=== PATIENT | female | born 1960 | race Caucasian/White ===

== ENCOUNTER → 2019-10-19 11:16 | Outpatient (CLI) | payer OTHER, SELFPAY ==
--- NOTE | ~2019-10-19 | XR_ITS ---
EXAMINATION: XR shoulder LT min 2V DATE: 10/19/2019 11:43 INDICATION: Chronic left shoulder pain. TECHNIQUE: 4 views of left shoulder were obtained. COMPARISON: None. FINDINGS: Bone alignment is normal. No fracture. Glenohumeral joint is normal. There is mild acromioc lavicular joint osteoarthritis. IMPRESSION: 1. Mild left acromioclavicular joint osteoarthritis. Reviewed, dictated and finalized at location B.
== END ==
PROVIDERS: PCP Nurse Practitioner; Visit Provider Nurse Practitioner
DX: M19.012 Primary osteoarthritis, left shoulder (principal); G89.29 Other chronic pain
CPT/HCPCS: 73030

== ENCOUNTER → 2019-12-06 16:47 | Outpatient (CLI) | payer OTHER, SELFPAY ==
--- NOTE | ~2019-12-06 | MR_ITS ---
EXAMINATION: MR shoulder LT wo con DATE: 12/06/2019 17:43 INDICATION: Left shoulder pain TECHNIQUE: Magnetic resonance imaging (MRI) of the left shoulder was performed without intravenous co ntrast. Sequences included axial PD-weighted FS FSE, coronal oblique PD-weighted FS FSE, coronal obli que T2-weighted FS FSE, sagittal PD-weighted FS FSE, and sagittal T1-weighted SE. COMPARISON: Left shoulder radiographs dated 10/19/2019 FINDINGS: Coracoacromial arch: The acromion undersurface is flat in morphology (type I). The coracoacromial ligament is normal. Mild acromioclavicular osteoarthritis. Rotator cuff: Mild supraspinatus tendinopathy with small intrasubstance tear extending for approximately 8 mm AP al jamey the superior facet footplate and involving less than one third of the tendon thickness. The infra spinatus, teres minor and subscapularis tendons are normal. Normal rotator cuff muscle bulk and signa l. Biceps tendon, glenoid labrum and glenohumeral cartilage: Long head of the biceps tendon is normal. Tear of the posterior half of the glenoid labrum extending from the 12:00 to the 6:00 position with a few tiny paravertebral cysts at the margins of the posterior inferior labrum. Mild partial thickness cartilage loss with smooth chondral surface along the apex of the humeral head. There is partial thi ckness cartilage loss at the anteroinferior glenoid with deeper full/near full-thickness chondral def ect at the central glenoid, the latter which could be developmental. Fluid: Physiologic amount of fluid in the glenohumeral joint and biceps tendon sheath. No loose osteochondra l bodies. No abnormal fluid signal in the subacromial/subdeltoid bursa to suggest bursitis. Bones: Normal marrow signal with no edema, fracture or abnormal marrow replacing process. There is thickenin g of the inferior joint capsule at the axillary recess as well as thickened soft tissue density repla cing the normal T1 hyperintense fat signal at the rotator cuff interval, both findings which can be s een with adhesive capsulitis which is a clinical diagnosis. IMPRESSION: 1. Mild glenohumeral osteoarthritis with tear of the posterior half of the glenoid labrum. 2. Mild supraspinatus tendinopathy with small mild intrasubstance tear along the superior facet footp late. 3. Thickened inferior joint capsule and increased soft tissue at the rotator cuff interval, both find ings which can be seen with adhesive capsulitis which is a clinical diagnosis. Reviewed, dictated and finalized at location B. IMPRESSION: 1. Mild glenohumeral osteoarthritis with tear of the posterior half of the mindi oid labrum. 2. Mild supraspinatus tendinopathy with small mild intrasubstance tear along th e superior facet footplate. 3. Thickened inferior joint capsule and increased soft tissue at the rotator cu ff interval, both findings which can be seen with adhesive capsulitis which is a clinical diagnosis.
== END ==
PROVIDERS: PCP Nurse Practitioner; Visit Provider Nurse Practitioner
DX: M25.512 Pain in left shoulder (principal)
CPT/HCPCS: 73221

== ENCOUNTER → 2020-10-17 11:22 | Outpatient (CLI) | payer OTHER, SELFPAY ==
--- NOTE | ~2020-10-17 | MM_ITS ---
EXAMINATION: MM screening dee BI w oliva HISTORY: Screening mammogram TECHNIQUE: Craniocaudal and mediolateral oblique 3-D tomosynthesis images were obtained and synthetic 2-D images were generated. CAD analysis was submitted and interpreted. COMPARISON: 01/06/2010 BREAST PARENCHYMAL COMPOSITION: There are scattered areas of fibroglandular density. FINDINGS: A small area of fat necrosis is present in the inner left breast, consistent with history o f excisional biopsy. There is no evidence of suspicious mass, calcification, or architectural distort ion to suggest malignancy in either breast. There has been no suspicious interval change. IMPRESSION: 1. No mammographic evidence of malignancy. 2. Recommend routine screening mammography in one year. BI-RADS Category 2: Benign finding(s). Reviewed, dictated and finalized at location A.
== END ==
PROVIDERS: PCP Nurse Practitioner; Visit Provider Nurse Practitioner
DX: Z12.31 Encounter for screening mammogram for malignant neoplasm of breast (principal)
CPT/HCPCS: 77063; 77067

== ENCOUNTER → 2022-01-08 10:42 | Outpatient (CLI) | payer BC, SELFPAY ==
--- NOTE | ~2022-01-08 | MM_ITS ---
EXAMINATION: MM screening dee BI w oliva HISTORY: Screening TECHNIQUE: Craniocaudal and mediolateral oblique 3-D tomosynthesis images were obtained and synthetic 2-D images were generated. CAD analysis was submitted and interpreted. COMPARISON: Comparison to multiple prior studies sequentially, with oldest reviewed study dated 12/23. BREAST PARENCHYMAL COMPOSITION: The breasts are almost entirely fatty. FINDINGS: There is a focal fatty lesion in the lower inner quadrant of the left breast with developin g coarse calcifications.. The calcifications have an indeterminate appearance. The right breast is st able without evidence for malignancy. IMPRESSION: 1. Developing coarse indeterminate calcifications in the lower inner quadrant of the left breast with adjacent loculated fat. 2. Magnification views are recommended. BI-RADS Category 0: Incomplete: Needs additional imaging evaluation. Reviewed, dictated and finalized at location A. DEALER IMPRESSION: 1. Developing coarse indeterminate calcifications in the lower inner quadrant o f the left breast with adjacent loculated fat. 2. Magnification views are recommended. BI-RADS Category 0: Incomplete: Needs additional imaging evaluation.
== END ==
PROVIDERS: PCP Nurse Practitioner; Visit Provider Nurse Practitioner
DX: Z12.31 Encounter for screening mammogram for malignant neoplasm of breast (principal); R92.8 Other abnormal and inconclusive findings on diagnostic imaging of breast
CPT/HCPCS: 77063; 77067

== ENCOUNTER → 2022-01-29 09:06 | Outpatient (CLI) | payer BC, SELFPAY ==
--- NOTE | ~2022-01-29 | MM_ITS ---
EXAMINATION: MM diagnostic mammo unilat LT HISTORY: Left breast calcifications on screening mammogram TECHNIQUE: Magnification views of the left breast were performed. CAD analysis was submitted and inte rpreted. COMPARISON: 01/08/2022, 10/17/2020, 01/06/2010 FINDINGS: There is a stable area of fat necrosis in the middle third of the inner breast likely relat ed to prior excisional biopsy. Dystrophic calcifications at the site demonstrates slight increase. No suspicious interval change is identified. IMPRESSION: 1. Fat necrosis and dystrophic calcification of the left breast at the site of prior excisional biops y. 2. Recommend routine screening mammography in one year. BI-RADS Category 2: Benign finding(s). Reviewed, dictated and finalized at location A. ER DEVELOPER IMPRESSION: 1. Fat necrosis and dystrophic calcification of the left breast at the site of prior excisional biopsy. 2. Recommend routine screening mammography in one year. BI-RADS Category 2: Benign finding(s).
== END ==
PROVIDERS: PCP Nurse Practitioner; Visit Provider Nurse Practitioner
DX: R92.8 Other abnormal and inconclusive findings on diagnostic imaging of breast (principal)
CPT/HCPCS: 77065

== ENCOUNTER 2024-03-31 13:34 | Outpatient (CLI) | payer OTHER, SELFPAY ==
--- NOTE | ~2024-03-31 | MM_ITS ---
EXAMINATION: MM screening dee BI w oliva HISTORY: Screening TECHNIQUE: Craniocaudal and mediolateral oblique 3-D tomosynthesis images were obtained and synthetic 2-D images were generated. CAD analysis was submitted and interpreted. COMPARISON: Comparison to multiple prior studies sequentially, with oldest reviewed study dated 10/17. BREAST PARENCHYMAL COMPOSITION: Not dense: There are scattered areas of fibroglandular density. FINDINGS: There is no evidence of suspicious mass, calcification, or architectural distortion to sugg est malignancy in either breast. There has been no suspicious interval change. IMPRESSION: 1. No mammographic evidence of malignancy. 2. Recommend routine screening mammography in one year. BI-RADS Category 1: Negative Reviewed, dictated and finalized at location B. GED CARE PROVIDER
--- OUTSIDE RECORDS SUMMARY | 2024-03-31 13:40 | XMS_ITS | Clinical Summary ---
Author Organization [facility] [address] Address [address] [place] [address] Phone Care Team Providers Care Reel Cutter Name Role Phone Eula Hicks Primary Care Provider [phone] Allergies Active Allergy Reactions Criticality Noted Date Comments Meperidine Nausea and Vomiting Low 05/11/2016 Medications fluticasone (FLONASE) 50 mcg/spray [place], Suspension 04/20/2016 Active hyoscyamine 0.125 mg Tablet, Sublingual 04/19/2016 Active lisinopril (PRINIVIL) 10 mg tablet 04/19/2016 Active pravastatin (PRAVACHOL) 40 mg tablet 04/19/2016 Active oxyCODONE-aceta minophen (PERCOCET) 5-325 mg tablet Take 1 Tablet by mouth every 6 hours as needed for Pain. Max Daily Amount: 4 Tablets 20 Tablet 06/18/2016 Active Active Problems Patient Care Coordination No te Formatting of this note migh t be different from the original. Primary Care: Eula Hicks FNP Referring Provider: No referring provider defined for this encounter. 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 Breast lump 04/28/2016 Family History Medical History Relation Name Comments Breast Cancer Maternal Grandmother x2-80 Diabetes Mother Heart Disease Mother Relation Name Status Comments Maternal Grandmother Mother Social History Tobacco Use Types Packs/Day Years Used Date Smoking Tobacco: Never Smokeless Tobacco: Never Tobacco Cessation:Counseling Given: No Alcohol Use Standard Drinks/Week Comments Yes 0 (1 standard drink = 0.6 oz pur e alcohol) rarely Comments No Sex and Gender Information Value Date Recorded Sex Assigned at Not on file 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 Gender Identity Not on file Sexual Orientation Not on file Last Filed Vital Signs Vital Sign Reading Time Taken Comments Blood Pressure 117/63 06/30/2016 9:21 AM CDT Pulse 80 06/30/2016 9:21 AM CDT Temperature 36.3 C (97.4 F) 06/18/2016 9:22 AM CDT Respiratory Rate 16 06/18/2016 10:05 AM CDT Oxygen Saturation 96% 06/18/2016 10:05 AM CDT Inhaled Oxygen Concentration - - Weight 110.2 kg (243 lb) 06/30/2016 9:21 AM CDT Height 162.6 cm (5' 4 ) 06/30/2016 9:21 AM CDT Body Mass Index 41.71 06/30/2016 9:21 AM CDT Plan of Treatment Health Maintenance Due Date Last Done Comments DTAP/TDAP/TD VACCINES (1 - Tdap) 1981 CERVICAL CANCER SCREENING 1992 COLORECTAL SCREENING 10/11/2007 Colorectal Cancer Screening 10/11/2007 FIT-DNA Q 3 years 10/11/2007 FIT/FOBT Q 1 year 10/11/2007 Flex Sig/CT Colonography Q 5 years 10/11/2007 ZOSTER VACCINE (1 of 2) 2012 BREAST CANCER SCREENING 04/23/2017 04/24/19 17, 04/21/2016, 03/12/2014 INFLUENZA VACCINE (#1) 2023 RSV VACCINE (60+ or ) (1 - 1-dose 75+ series) 2037 Medical Devices Implanted Type Area Sales Route Driver Helper Device Identifier Shelf Expiration Date Model / Serial / Lot Hemostatic Surgicel 4x8in 1949 - [id number] Implanted:Qty: 1 on 06/18/2016 by Keli Smith MD at [facility] [place] Hemostatic Left: Breast [employer] 08/21/[id number] / / [id number] Procedures Procedure Name Priority Date/Time Associated Diagnosis Comments MAMMO DIAGNOSTIC UNI LEFT W OR WO CAD Routine 04/23/2016 from Last 3 Months or Most Recently Relevant to Health Maintenance Results * MAMMO DIAGNOSTIC UNI LEFT W OR WO CAD (04/23/2016) Anatomical Region Laterality Modality Breast Left Other Eula MEAD MAMMO ORDERABLES Final Result from Last 3 Months or Most Recently Relevant to Health Maintenance Insurance [employer] OPEN ACCESS HMO Advance Directives For more information, please contact: [phone] * Full Code (Latest Code Status on File) Date Activated Date Inactivated Comments 06/18/2016 8:28 AM 06/18/2016 1:41 PM * Full Code Date Activated Date Inactivated Comments 06/18/2016 6:46 AM 06/18/2016 8:28 AM Care Teams Reel Cutter Relationship Specialty Start Date End Date Eula Hicks FNP [address] [place] [address] [place] [address] PCP - General NURSE PRACTITIONER 05/06/16
== END 2024-03-31 13:35 | disposition home or self-care (01) ==
LOC: ANHIMG 13:38
PROVIDERS: PCP Nurse Practitioner; Visit Provider Nurse Practitioner
DX: Z12.31 Encounter for screening mammogram for malignant neoplasm of breast (principal)
CPT/HCPCS: 77063; 77067